=== PATIENT | female | born 1995 | race Caucasian/White ===

== ENCOUNTER 2021-05-29 15:15 | Emergency (ER) | payer OTHER, SELFPAY ==
[2021-05-29] MEDS ORDERED: Boostrix 0.5 ML (Tdap) VIAL ONE (16:18)
[2021-05-29] MEDS ORDERED: Amoxicillin/Potassium Clav 875 MG TAB ONE (16:18)
== END 2021-05-29 17:06 | disposition home or self-care (01) ==
LOC: NAV ERS 15:15
DX: S91.351A Open bite, right foot, initial encounter (principal); J45.909 Unspecified asthma, uncomplicated; F17.210 Nicotine dependence, cigarettes, uncomplicated; Z86.711 Personal history of pulmonary embolism; W54.0XXA Bitten by dog, initial encounter
CPT/HCPCS: 90471; 90715

== ENCOUNTER 2021-09-25 13:03 | Emergency (ER) | payer SELFPAY | END 2021-09-25 14:33 | disposition home or self-care (01) | LOC: NAV ERS 13:03 | DX: S23.41XA Sprain of ribs, initial encounter (principal); S60.222A Contusion of left hand, initial encounter; F17.210 Nicotine dependence, cigarettes, uncomplicated; Y04.2XXA Assault by strike against or bumped into by another person, initial encounter; Z86.718 Personal history of other venous thrombosis and embolism; Z86.711 Personal history of pulmonary embolism ==

== ENCOUNTER 2021-11-11 18:53 | Emergency (ER) | payer OTHER, SELFPAY ==
[2021-11-11] MEDS ORDERED: Ketorolac Tromethamine 60 MG/2 ML VIAL ONE (19:48)
== END 2021-11-11 20:08 | disposition home or self-care (01) ==
LOC: NAV ERS 18:53
DX: S20.212A Contusion of left front wall of thorax, initial encounter (principal); F17.210 Nicotine dependence, cigarettes, uncomplicated; Y04.2XXA Assault by strike against or bumped into by another person, initial encounter
CPT/HCPCS: 71045; 96372; J1885

== ENCOUNTER 2021-11-19 13:10 | Emergency (ER) | payer OTHER, SELFPAY ==
[2021-11-19 13:56] LABS: Pregnancy Test - Urine (BHCG) Negative (Negative); Pregu Control Background? CLEAR/WHITE (CLR/WHITE); Pregu Control Bar Appear? YES (CONTROL BAR); Specific Gravity 1.007 (1.002-1.036)
[2021-11-19] MEDS ORDERED: Boostrix 0.5 ML (Tdap) VIAL ONE (14:07)
[2021-11-19] MEDS ORDERED: Lidocaine 1% (PF) 30 ML VIAL ONE (14:07)
== END 2021-11-19 15:13 | disposition home or self-care (01) ==
LOC: NAV ERS 13:10
DX: S06.0X1A Concussion with loss of consciousness of 30 minutes or less, initial encounter (principal); S00.83XA Contusion of other part of head, initial encounter; S20.212A Contusion of left front wall of thorax, initial encounter; F17.210 Nicotine dependence, cigarettes, uncomplicated; Z86.718 Personal history of other venous thrombosis and embolism; Z86.711 Personal history of pulmonary embolism; Y04.0XXA Assault by unarmed brawl or fight, initial encounter
CPT/HCPCS: 70450; 70486; 81025; 90715; J2001

== ENCOUNTER 2022-02-28 21:16 | Emergency (ER) | payer SELFPAY | END 2022-02-28 23:40 | disposition left against medical advice (07) | LOC: NAV ERS 21:16 | DX: R07.9 Chest pain, unspecified (principal); F17.210 Nicotine dependence, cigarettes, uncomplicated; Z86.718 Personal history of other venous thrombosis and embolism; Z86.711 Personal history of pulmonary embolism | CPT/HCPCS: 93005 ==

== ENCOUNTER 2022-04-12 22:22 | Emergency (ER) | payer SELFPAY | END 2022-04-12 22:52 | disposition home or self-care (01) | LOC: NAV ERS 22:22 | DX: S61.213A Laceration without foreign body of left middle finger without damage to nail, initial encounter (principal); F17.210 Nicotine dependence, cigarettes, uncomplicated; X58.XXXA Exposure to other specified factors, initial encounter | CPT/HCPCS: 12001 ==

== ENCOUNTER 2023-09-07 16:58 | Emergency (ER) | payer SELFPAY | END 2023-09-07 17:42 | disposition home or self-care (01) | LOC: NAV ERS 16:58 | DX: L03.113 Cellulitis of right upper limb (principal); F17.210 Nicotine dependence, cigarettes, uncomplicated | CPT/HCPCS: 99283 ==

== ENCOUNTER 2023-10-01 15:20 | Emergency (ER) | payer BC ==
[2023-10-01] MEDS ORDERED: Water For Inject, Bacteriostat 30 ML ONE (16:05)
[2023-10-01] MEDS ORDERED: cefTRIAXone (ROCEPHIN) 1 GM VIAL ONE (16:05)
== END 2023-10-01 16:54 | disposition home or self-care (01) ==
LOC: NAV ERS 15:20
DX: H60.12 Cellulitis of left external ear (principal); L03.221 Cellulitis of neck; F17.210 Nicotine dependence, cigarettes, uncomplicated
CPT/HCPCS: 96372; 99283; J0696

== ENCOUNTER 2023-10-24 11:38 | Emergency (ER) | payer BC ==
[2023-10-24] MEDS ORDERED: cefTRIAXone (ROCEPHIN) 1 GM VIAL ONE (12:13)
== END 2023-10-24 12:30 | disposition home or self-care (01) ==
LOC: NAV ERS 11:38
DX: L03.811 Cellulitis of head [any part, except face] (principal); F17.210 Nicotine dependence, cigarettes, uncomplicated
CPT/HCPCS: 96372; 99283; J0696

== ENCOUNTER 2023-10-24 21:38 | Emergency (ER) | payer BC | END 2023-10-24 22:20 | disposition home or self-care (01) | LOC: NAV ERS 21:38 | DX: L03.213 Periorbital cellulitis (principal); F17.210 Nicotine dependence, cigarettes, uncomplicated; L03.811 Cellulitis of head [any part, except face] | CPT/HCPCS: 96372; 99283; J0696 ==

== ENCOUNTER 2023-10-31 06:31 | Emergency (ER) | payer BC ==
[2023-10-31] MEDS ORDERED: methylPREDNISolone Sod Succ/PF 125 MG/2 ML VIAL ONE (07:25)
[2023-10-31] MEDS ORDERED: diphenhydrAMINE 50 MG/ML VIAL ONE (07:25)
[2023-10-31 08:22] LABS: ALT (SGPT) 14 U/L (8-55); AST (SGOT) 16 U/L (5-34); Albumin 4.8 g/dL (3.5-5.0); Alkaline Phosphatase 83 U/L (40-110); Anion Gap 12 mmol/L (10-20); BUN (Urea Nitrogen) 12 mg/dL (7.0-18.7); Bilirubin, Total 0.2 mg/dL (0.2-1.2); Calc. Creatinine Clearance 0 mL/min (70-130); Calcium 9.9 mg/dL (7.8-10.44); Carbon Dioxide 26 mmol/L (22-29); Chloride 104 mmol/L (98-107); Estimated GFR 71; Globulin 3.6 g/dL (2.4-3.5); Glucose 68 mg/dL (70-105); Potassium 4.1 mmol/L (3.5-5.1); Protein, Total 8.4 g/dL (6.0-8.3); Sodium 138 mmol/L (136-145)
[2023-10-31 08:32] LABS: #Basophils 0.1 thou/uL (0.0-0.2); #Lymphocytes 2.3 thou/uL (1.20-3.40); #Monocytes 0.4 thou/uL (0.11-0.59); #Neutrophils 2.9 thou/uL (1.40-6.50); %Eosinophils 3.8 % (0.0-10.0); %Lymphocytes 39.9 % (21.0-51.0); %Monocytes 7.2 % (0.0-10.0); %Neutrophils 49.3 % (42.0-75.0); Hematocrit 37.9 % (36.0-47.0); Hemoglobin 12.6 g/dL (12.0-16.0); Mean Corpuscular HGB CONC 33.2 g/dL (32.0-36.0); Mean Corpuscular Hemoglobin 29.2 pg (27.0-31.0); Platelet Count 270 10x3/uL (130-400); Red Blood Cell (RBC) Count 4.31 mill/uL (4.20-5.40); White Blood Cell (WBC) Count 5.8 10x3/uL (4.8-10.8)
== END 2023-10-31 09:20 | disposition home or self-care (01) ==
LOC: NAV ERS 06:31
DX: H02.844 Edema of left upper eyelid (principal); F17.210 Nicotine dependence, cigarettes, uncomplicated
CPT/HCPCS: 80053; 85025; 86140; 96372; 99283; J1200; J2930

== ENCOUNTER 2024-02-02 21:12 | Emergency (ER) | payer BC | END 2024-02-02 22:12 | disposition home or self-care (01) | LOC: NAV ERS 21:12 | DX: Z30.46 Encounter for surveillance of implantable subdermal contraceptive (principal); F17.210 Nicotine dependence, cigarettes, uncomplicated | CPT/HCPCS: 99283 ==

== ENCOUNTER 2024-04-26 17:13 | Emergency (ER) | payer BC | END 2024-04-26 17:36 | disposition home or self-care (01) | LOC: NAV ERS 17:13 | DX: S06.0X0A Concussion without loss of consciousness, initial encounter (principal); F17.210 Nicotine dependence, cigarettes, uncomplicated; Z55.6 Problems related to health literacy; W22.8XXA Striking against or struck by other objects, initial encounter | CPT/HCPCS: 99283 ==

== ENCOUNTER 2024-05-12 16:20 | Emergency (ER) | payer BC, SELFPAY ==
[2024-05-12] MEDS ORDERED: Acetaminophen 325 MG TAB ONE (17:44)
== END 2024-05-12 17:53 | disposition home or self-care (01) ==
LOC: NAV ERS 16:20
DX: S93.502A Unspecified sprain of left great toe, initial encounter (principal); F17.210 Nicotine dependence, cigarettes, uncomplicated; W55.12XA Struck by horse, initial encounter
CPT/HCPCS: 99283

== ENCOUNTER 2024-10-02 22:15 | Emergency (ER) | payer BC ==
[2024-10-03] MEDS ORDERED: Apixaban 5 MG TAB ONE (00:36)
== END 2024-10-03 00:47 | disposition home or self-care (01) ==
LOC: NAV ERS 22:15
DX: R20.0 Anesthesia of skin (principal); F17.210 Nicotine dependence, cigarettes, uncomplicated; Z86.711 Personal history of pulmonary embolism
CPT/HCPCS: 99284

== ENCOUNTER 2024-10-16 10:38 | Emergency (ER) | payer BC, SELFPAY ==
[2024-10-16] MEDS ORDERED: Clindamycin 150 MG CAP ONE (11:31)
[2024-10-16] MEDS ORDERED: Cephalexin 500 MG CAP ONE (11:31)
== END 2024-10-16 11:44 | disposition home or self-care (01) ==
LOC: NAV ERS 10:38
DX: K04.4 Acute apical periodontitis of pulpal origin (principal); F17.210 Nicotine dependence, cigarettes, uncomplicated
CPT/HCPCS: 99283